=== PATIENT | female | born 1980 | race Caucasian/White ===

== ENCOUNTER → 2023-03-29 15:13 | Outpatient (CLI) | payer BC, SELFPAY ==
--- NOTE | ~2023-03-29 | MM_ITS ---
EXAMINATION: MM screening praneeth BI w ga HISTORY: Screening TECHNIQUE: Craniocaudal and mediolateral oblique 3-D tomosynthesis images were obtained and synthetic 2-D images were generated. CAD analysis was submitted and interpreted. COMPARISON: No prior mammogram is available for comparison at this institution. BREAST PARENCHYMAL COMPOSITION: There are scattered areas of fibroglandular density. FINDINGS: There is no evidence of suspicious mass, calcification, or architectural distortion to sugg est malignancy in either breast. There has been no suspicious interval change. IMPRESSION: 1. No mammographic evidence of malignancy. 2. Recommend routine screening mammography in one year. BI-RADS Category 1: Negative Reviewed, dictated and finalized at location A. OR ACCOUNT REPRESENTATIVE
== END ==
PROVIDERS: PCP Obstetrics & Gynecology; Visit Provider Obstetrics & Gynecology
DX: Z12.31 Encounter for screening mammogram for malignant neoplasm of breast (principal)
CPT/HCPCS: 77063; 77067

== ENCOUNTER 2024-03-20 13:14 | Outpatient (CLI) | payer BC, SELFPAY ==
--- NOTE | ~2024-03-20 | XR_ITS ---
XR chest 2V Ordering provider: VILMA Moreno History: 43 years Female with . R05.9 - Cough, unspecified . Comparison: None. FINDINGS: MEDIASTINUM: The cardiac silhouette is not enlarged. LUNGS: No effusions or pneumothorax. Minimal opacification the lung bases is not excluded. OTHER: No free air under the diaphragm. IMPRESSION: Minimal opacification the lung bases which may indicate early pneumonia. Follow-up advised. Reviewed, dictated and finalized at location A. ER DRIVER IMPRESSION: Minimal opacification the lung bases which may indicate early pneumonia. Follow -up advised.
== END 2024-03-20 13:15 | disposition home or self-care (01) ==
LOC: ANHBWCIMG 13:15
PROVIDERS: PCP Family Medicine; Visit Provider Nurse Practitioner Family
DX: R05.9 Cough, unspecified (principal)
CPT/HCPCS: 71046

== ENCOUNTER 2024-05-02 15:24 | Outpatient (CLI) | payer BC, SELFPAY ==
--- NOTE | ~2024-05-02 | MM_ITS ---
EXAMINATION: MM screening praneeth BI w ga HISTORY: Screening TECHNIQUE: Craniocaudal and mediolateral oblique 3-D tomosynthesis images were obtained and synthetic 2-D images were generated. CAD analysis was submitted and interpreted. COMPARISON: 03/29/2023 BREAST PARENCHYMAL COMPOSITION: Not dense: There are scattered areas of fibroglandular density. FINDINGS: There is no evidence of suspicious mass, calcification, or architectural distortion to sugg est malignancy in either breast. There has been no suspicious interval change. IMPRESSION: 1. No mammographic evidence of malignancy. 2. Recommend routine screening mammography in one year. BI-RADS Category 1: Negative Reviewed, dictated and finalized at location B. LEY OPERATOR
== END 2024-05-02 15:25 | disposition home or self-care (01) ==
LOC: MICIMG 15:24
PROVIDERS: PCP Family Medicine; Visit Provider Obstetrics & Gynecology
DX: Z12.31 Encounter for screening mammogram for malignant neoplasm of breast (principal)
CPT/HCPCS: 77063; 77067

== ENCOUNTER 2024-10-03 08:58 | Outpatient (CLI) | payer BC, SELFPAY ==
--- OUTSIDE RECORDS SUMMARY | 2024-10-03 09:12 | XMS_ITS | Clinical Summary ---
Author Organization [facility] Address [address] [place] [address] Care Team Providers Care Key Carrier Name Role Phone Calixto Roman MD Primary Care Provider Source Comments [facility],non-owned Affiliates and Associated Physician Practices is amultiple site organization consisting of ambulatory clinics and hospital sitesin [place], [place], [place] and [place]. This disclosure is being madepursuant to the Care Everywhere program and may not contain all information available regarding this patient. Last updated 17.[employer] [facility] Allergies No known active allergies Medications * Be aware that medications may not be up to date on this document. Alwaysverify current medications with the patient. ALBUTEROL IN Active Multiple Vitamin (MULTIVITAMINS PO) A ctive ciprofloxacin 0.3% (CILOXAN) 0.3 % ophthalmic solutionIndications :Other mucopurulent conjunctivitis of right eye 2 gtts, R eye, TID x 7days. 5 mL 06/01/2016 Active Social History Tobacco Use Types Packs/Day Years Used Date Smoking Tobacco: Never Smokeless Tobacco: Never Comments No Sex and Gender Information Value Date Recorded Sex Assigned at Not on file Legal Sex Female 7:22 AM CDT Gender Identity Not on file Sexual Orientation Not on file Last Filed Vital Signs Vital Sign Reading Time Taken Comments Blood Pressure 114/78 06/01/2016 9:15 AM CDT Pulse 56 06/01/2016 9:15 AM CDT Temperature 36.8 C (98.3 F) 06/01/2016 9:15 AM CDT Respiratory Rate 16 06/01/2016 9:15 AM CDT Oxygen Saturation 99% 06/01/2016 9:15 AM CDT Inhaled Oxygen Concentration - - Weight 68 kg (150 lb) 06/01/2016 9:15 AM CDT Height 167.6 cm (5' 6) 06/01/2016 9:15 AM CDT Body Mass Index 24.21 06/01/2016 9:15 AM CDT Plan of Treatment Health Maintenance Due Date Last Done Comments LIPID TESTING 1980 MAMMOGRAM 1980 HIV SCREENING 08/28/1995 HEPATITIS C SCREENING 08/23/1998 DTAP/TDAP/TD VACCINES (1 - Tdap) 08/28/1999 HEPATITIS B VACCINE (1 of 3 - 19+ 3-dose series) 08/28/1999 HPV VACCINE (1 - 3-dose SCDM series) 08/28/2007 COVID-19 VACCINE ( - 2023-2 5 season) 2023 DEPRESSION SCREENING 03/14/2024 INFLUENZA VACCINE (#1) 2024 ZOSTER VACCINE (1 of 2) 2030 HIB VACCINE Aged Out No longer eligi ble based on patient's age to complete this topic MENINGOCOCCAL (Group B) VACC INE SHARED DECISION-MAKING Aged Out No longer eligibl e based on patient's age to complete this topic MENINGOCOCCAL GROUPS A/C/Y/W VACCINE Aged Out No longer eligible b ased on patient's age to complete this topic PNEUMOCOCCAL VACCINE Aged Out No long er eligible based on patient's age to complete this topic Insurance [facility] Care Teams Key Carrier Relationship Specialty Start Date End Date Calixto Roman MD [address] [place] [address] PCP - General Family Medicine 06/01/16
[2024-10-03 09:32] LABS: Hematocrit 42.5 % (37.0-47.0); Hemoglobin 13.7 g/dL (12.0-15.0); Immature Granulocyte Percent A 0.3 % (0-0.5); Lymphocytes Absolute Auto 1.78 K/mm3 (0.9-3.2); Mean Corpuscular HGB Conc 32.2 g/dl (32-36); Mean Corpuscular Hemoglobin 28.7 pg (26-34); Mean Corpuscular Volume 89.1 fl (80-100); Nucleated Red Blood Cells Absolute Auto 0.000 K/mm3 (0.0-0.012); Nucleated Red Blood Cells Perc 0.0 % (0.0-0.2); Platelet Count Result 267 k/mm3 (150-375); Red Blood Count 4.77 M/mm3 (4.2-5.4); White Blood Count 7.3 K/mm3 (4.5-10.0)
[2024-10-03 10:08] LABS: Alanine Aminotransferase 16 U/L (6-35); Albumin Level 3.8 g/dL (3.5-5.1); Alkaline Phosphatase 41 U/L (38-126); Anion Gap 5 mmol/L (4-12); Aspartate Amino Transferase 22 U/L (14-36); Bilirubin,Total 0.3 mg/dL (0.2-1.3); Blood Urea Nitrogen 16 mg/dL (7-17); Calcium 8.8 mg/dL (8.4-10.2); Carbon Dioxide 26 mmol/L (22-30); Chloride 104 mmol/L (98-107); Cholesterol 162 mg/dL (0-200); Estimated Glomerular Filt Rate > 60; Glucose 89 mg/dL (65-110); HDL Direct 54 mg/dL; Potassium 4.1 mmol/L (3.4-5.0); Sodium 135 mmol/L (137-145); Total Protein 6.1 g/dL (6.3-8.2); Triglycerides 84 mg/dL (<150)
[2024-10-03 10:43] LABS: Thyroid Stimulating Hormone 1.540 uIU/mL (0.465-4.680)
== END 2024-10-03 08:59 | disposition home or self-care (01) ==
PROVIDERS: PCP Family Medicine; Visit Provider Family Medicine
DX: Z00.00 Encounter for general adult medical examination without abnormal findings (principal); Z82.49 Family history of ischemic heart disease and other diseases of the circulatory system
CPT/HCPCS: 36415; 80053; 80061; 81291; 84443; 85025

== ENCOUNTER 2024-10-18 08:15 | Outpatient (CLI) | payer BC, SELFPAY ==
--- OUTSIDE RECORDS SUMMARY | 2024-10-18 08:21 | XMS_ITS | Clinical Summary ---
Author Organization [facility] Address [address] [place] [address] Care Team Providers Care Fireman Helper Name Role Phone Calixto Roman MD Primary Care Provider [phone] Source Comments [facility],non-owned Affiliates and Associated Physician Practices is amultiple site organization consisting of ambulatory clinics and hospital sitesin [place], [place], [place] and [place]. This disclosure is being madepursuant to the Care Everywhere program and may not contain all information available regarding this patient. Last updated 17.[employer] [facility] Allergies No known active allergies Medications * [...] patient's age to complete this topic Insurance [facility] Care Teams Fireman Helper Relationship Specialty Start Date End Date Calixto Roman MD [address] [place] [address] PCP - General Family Medicine 06/01/16
== END 2024-10-18 08:16 | disposition home or self-care (01) ==
LOC: ANHLAB 08:17
PROVIDERS: PCP Family Medicine; Visit Provider Family Medicine
DX: Z82.49 Family history of ischemic heart disease and other diseases of the circulatory system (principal)
CPT/HCPCS: 81240; 83090; 85300; 85303; 85306; 85307; 85613; 85732; 86146; 86147